=== PATIENT | female | born 1995 | race Caucasian/White ===

== ENCOUNTER → 2025-06-14 13:51 | Outpatient (REF) | payer BC, SELFPAY ==
[2025-06-14 19:15] LABS: Beta HCG Quantitative < 2.39 mIU/ml
== END ==
LOC: REG 13:51
PROVIDERS: ATTENDING PHYSICIAN Obstetrics & Gynecology; FAMILY PHYSICIAN Internal Medicine
DX: O26.859 Spotting complicating pregnancy, unspecified trimester (principal)
CPT/HCPCS: 36415; 84702

== ENCOUNTER → 2025-06-16 14:30 | Outpatient (REF) | payer BC, SELFPAY ==
[2025-06-16 17:05] LABS: Beta HCG Quantitative < 2.39 mIU/ml
== END ==
LOC: REG 14:30
PROVIDERS: ATTENDING PHYSICIAN Obstetrics & Gynecology
DX: O26.859 Spotting complicating pregnancy, unspecified trimester (principal)
CPT/HCPCS: 36415; 84702

== ENCOUNTER → 2025-06-23 08:46 | Outpatient (REF) | payer BC, SELFPAY ==
[2025-06-26 23:08] LABS: HPV, High Risk Not Detected; HPV, High Risk Source Cervical
== END ==
LOC: CPAP 08:46
PROVIDERS: ATTENDING PHYSICIAN Nurse Practitioner Family
DX: Z01.419 Encounter for gynecological examination (general) (routine) without abnormal findings (principal); Z11.51 Encounter for screening for human papillomavirus (HPV)
CPT/HCPCS: 87624; G0123